=== PATIENT | female | born 1975 | race Caucasian/White ===

== ENCOUNTER → 2017-01-29 | Outpatient (CLI) | payer BC ==
[~2017-01-29] MED LIST: FLC1T PO; IBUP200C PO; NORE0.3515 PO; PREN1TAB39 PO
--- NOTE | 2017-01-30 08:40 | Diagnostic Imaging Report ---
INDICATION: Digital screening mammography bilateral with CAD The current study was also evaluated with a Computer Aided Detection (CAD) system. This is a baseline study There is [id number] breast parenchymal density. No dominant mass or suspicious calcifications identified. There is no evidence of skin thickening or significant architectural distortion. IMPRESSION: Negative mammograms. Continued physical examination and annual mammographic followup are recommended. ACR BI-RADS Category 1: Negative. Result letter will be mailed to the patient. Note: At least 10% of breast cancer is not imaged by mammography. Dictated by: Dictated on workstation # [id number]
== END ==
LOC: RAD 09:32
PROVIDERS: ATTEND Family Medicine
DX: Z12.31 Encounter for screening mammogram for malignant neoplasm of breast (principal)